=== PATIENT | male | born 1945 | race Caucasian/White ===

== ENCOUNTER 2020-02-19 17:17 | Emergency (ER) | payer MEDICARE, BC ==
[2020-02-19] MEDS ORDERED: Sodium Chloride 0.9% 10 ML Syringe FLUSH PRN (17:27)
[2020-02-19] MEDS ORDERED: Sodium Chloride 0.9% 2.5 ML Syringe FLUSH PRN (17:27)
--- NOTE | 2020-02-19 17:43 | EDM.PDOC ---
<Harvey Brennan - Last Filed: 02/19/20 19:14> ED HPI GENERAL MEDICAL PROBLEM - General Chief Complaint: Cardiovascular Problem Stated Complaint: DIZZY NOT FEELING WELL Time Seen by Provider: 02/19/20 17:25 - Related Data Allergies Allergy/AdvReac Type Severity Reaction Status Date / Time No Known Allergies Allergy Verified 02/19/20 17:29 Home Meds: Home Meds Acetaminophen [Tylenol] 500 mg PO Q4H PRN 02/19/20 [History] Aspirin 81 mg PO DAILY 02/19/20 [History] Calcium Carbonate [Calcium] 1 tab PO BID 02/19/20 [History] Cholecalciferol (Vitamin D3) [Vitamin D] 1 tab PO DAILY 02/19/20 [History] Clopidogrel Bisulfate [Plavix] 1 tab PO DAILY 02/19/20 [History] Diltiazem [Cardizem] 1 tab PO DAILY 02/19/20 [History] Docusate Calcium 1 tab PO DAILY PRN 02/19/20 [History] Folic Acid 2 tab PO DAILY 02/19/20 [History] Lutein 20 mg PO DAILY 02/19/20 [History] Methotrexate 8 tab PO WEEKLY 02/19/20 [History] [place]-3/DHA/Epa/Fish Oil [[place] 3 500 Softgel] 1,000 mg PO DAILY 02/19/20 [History] Pantoprazole [ProTONIX] 40 mg PO DAILY 02/19/20 [History] Rosuvastatin [Crestor] 10 mg PO DAILY 02/19/20 [History] Vit A/Vit C/Vit E/Zinc/Copper [Preservision] 2 tab PO DAILY 02/19/20 [History] Vitamin E 1 tab PO DAILY 02/19/20 [History] predniSONE [Prednisone] 2.5 mg PO BEDTIME 02/19/20 [History] predniSONE [Prednisone] 5 mg PO DAILY 02/19/20 [History] ED ROS GENERAL - Review of Systems Review Of Systems: Comprehensive ROS is negative, except as noted in HPI. ED EXAM, GENERAL - Physical Exam Exam: See Below General Appearance: Alert, WD/WN, No Apparent Distress Head: Atraumatic, Normocephalic Respiratory/Chest: No Respiratory Distress Extremities: Normal Inspection Neurological: Alert, Normal Gait Psychiatric: Normal Affect, Normal Mood Skin Exam: Warm, Dry, Intact Course - Re-Assessments/Exams Free Text/Narrative Re-Assessment/Exam: 02/19/20 19:07 Patient care transitioned to f/u IVFB and reassessment. Departure - Departure Time of Disposition: 19:14 Disposition: Home, Self-Care 01 Clinical Impression: Orthostatic hypotension Instructions: Tilt Table Test, Orthostatic Hypotension Referrals: Gucci Paredes MD [Primary Care Provider] - Forms: ED Department Discharge Additional Instructions: The following information is given to patients seen in the emergency department who are being discharged to home. This information is to outline your options for follow-up care. We provide all patients seen in our emergency department with a follow-up referral. The need for follow-up, as well as the timing and circumstances, are variable depending upon the specifics of your emergency department visit. If you don't have a primary care physician on staff, we will provide you with a referral. We always advise you to contact your personal physician following an emergency department visit to inform them of the circumstance of the visit and for follow-up with them and/or the need for any referrals to a consulting specialist. The emergency department will also refer you to a specialist when appropriate. This referral assures that you have the opportunity for follow-up care with a specialist. All of these measure are taken in an effort to provide you with optimal care, which includes your follow-up. Under all circumstances we always encourage you to contact your private physician who remains a resource for coordinating your care. When calling for follow-up care, please make the office aware that this follow-up is from your recent emergency room visit. If for any reason you are refused follow-up, please contact the [facility] Emergency Department at and asked to speak to the emergency department charge nurse. Follow up with a primary care physician in 1-3 days; if you do not already have one, you can utilize either of the below clinics and let them know you were seen in the ED and require porras follow-up: [facility] [address] [place] [address] My [facility] [address] [place] [address] <Wilfred Sharp - Last Filed: 02/19/20 19:33> ED HPI GENERAL MEDICAL PROBLEM - General Source of Information: Reports: Patient, Old Records History Limitations: Reports: No Limitations - History of Present Illness INITIAL COMMENTS - FREE TEXT/NARRATIVE: 74/M w/PMH CAD s/p CABG x5 s/p stenting x5, HTN presenting with lightheadedness. Had two episodes of intermittent lightheadedness at home a/w position changes from sitting to standing. [place] lightheaded and had to sit/lie down, immediately felt better afterwards. A/w feeling of weakness in b/l lower extremities that also rapidly resolved after lying down. No longer feeling lightheaded. 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 Denies CP, SOB, vision changes, dysarthria, dysphagia, headache or neck pain, facial or extremity numbness or weakness, h/o prior CVA/TIA. No recent illness, fever, NVD, rectal bleeding, h/o anemia. At present the patient is asymptomatic and feels back to normal. ROS: A 10-point review of systems was negative, except as noted in the HPI (or in the ROS section of this note). Past medical history: Reviewed, no additional pertinent history. Surgical history: Reviewed in system, no additional pertinent history. Social history: Reviewed in system, no additional pertinent history. Family history: Reviewed in system, no additional pertinent history. PHYSICAL EXAM Vital signs reviewed. Nursing notes reviewed. Constitutional: Awake, alert, non-distressed. Head: Normocephalic, atraumatic. Eyes: EOMI, conjunctiva normal, no discharge, no scleral icterus. Ears, Nose, Throat: External ears and nose normal, moist oral mucosa. Cardiovascular: 2+ radial pulse, capillary refill less than 2 seconds. 2+ systolic murmur. Pulmonary: normal work of breathing, no accessory muscle use. Abdomen/GI: Soft, nontender, nondistended, no guarding or rigidity, no masses. Musculoskeletal: No deformities. Integumentary: Appropriate color for ethnicity, warm, dry, no pallor or jaundice, no rash. Neurologic: Awake, alert, and oriented x3. Cranial nerves II through XII intact. No facial droop or dysarthria. Supple neck with normal range of motion. No pronator drift. Normal [id number] and cnog-lh-mctk. No dysdiadochokinesia. 5/5 strength in all extremities. Sensation intact to light touch x4. Normal gait. Able to sit, stand, and ambulate without assistance. Psychiatric: Appropriate mood and affect, normal thought process. Past Medical History Cardiovascular History: Reports: Bypass, CAD, High Cholesterol, Hypertension Respiratory History: Reports: COPD Musculoskeletal History: Reports: Arthritis Oncologic (Cancer) History: Reports: Other (See Below) Other Oncologic History: Lip - Infectious Disease History Infectious Disease History: Reports: Measles, Mumps - Past Surgical History Cardiovascular Surgical History: Reports: Carotid Stents, Coronary Artery Bypass Musculoskeletal Surgical History: Reports: Knee Replacement Other Musculoskeletal Surgeries/Procedures:: Left Knee replaced Social & Family History - Family History Family Medical History: Noncontributory - Tobacco Use Smoking Status *Q: Never Smoker - Recreational Drug Use Recreational Drug Use: No Course - Vital Signs Text/Narrative:: CBC with mild normcytic anemia. Electrolytes reassuring. Negative troponin. No gross neurologic deficits. Low suspicion for CVA/TIA at this point given HPI, description of symptoms with position change, and patient being back to baseline. Seems consistent with orthostatic near-syncope. Ordered 1L LR bolus, will plan to ambulante afterwards to ensure clinical improvement. Signed out to Dr. Brennan at shift change pending completion of fluids and reassessment. Last Recorded V/S: Last Vital Signs Temp 35.9 C L 02/19/20 17:26 Pulse 75 02/19/20 18:21 Resp 12 02/19/20 18:21 BP 139/69 02/19/20 18:21 Pulse Ox 95 02/19/20 18:21 - Orders/Labs/Meds Orders: Active Orders 24 hr Category Date Time Status Cardiac Monitoring [RC] . DIRECTED Care 02/19/20 17:27 Active EKG Documentation Completion [RC] STAT Care 02/19/20 17:27 Active Pulse Oximetry [RC] ASDIRECTED Care 02/19/20 17:27 Active Sodium Chloride 0.9% [Saline Flush] Med 02/19/20 17:27 Active 10 ml FLUSH ASDIRECTED PRN Sodium Chloride 0.9% [Saline Flush] Med 02/19/20 17:27 Active 2.5 ml FLUSH ASDIRECTED PRN Saline Lock Insert [OM.PC] Stat Oth 02/19/20 17:27 Ordered Medication Orders Sodium Chloride (Saline Flush) 10 ml FLUSH ASDIRECTED PRN PRN Reason: Keep Vein Open Last Admin: 02/19/20 17:45 Dose: 10 ml Documented by: DENNY Sodium Chloride (Saline Flush) 2.5 ml FLUSH ASDIRECTED PRN PRN Reason: Keep Vein Open Last Admin: 02/19/20 17:45 Dose: 2.5 ml Documented by: DENNY Labs: Laboratory Tests 02/19/20 02/19/20 Range/Units 17:39 17:39 WBC 8.92 (4.0-11.0) K/uL RBC 3.93 L (4.50-5.90) M/uL Hgb 12.6 L (13.0-17.0) g/dL Hct 38.4 (38.0-50.0) % MCV 97.7 (80.0-98.0) fL MCH 32.1 H (27.0-32.0) pg MCHC 32.8 (31.0-37.0) g/dL RDW Std Deviation 55.2 (28.0-62.0) fl RDW Coeff of Tiny 15 (11.0-15.0) % Plt Count 140 L (150-400) K/uL MPV 10.50 (7.40-12.00) fL Neut % (Auto) 61.7 (48.0-80.0) % Lymph % (Auto) 30.5 (16.0-40.0) % [place] % (Auto) 6.6 (0.0-15.0) % Eos % (Auto) 1.0 (0.0-7.0) % Baso % (Auto) 0.2 (0.0-1.5) % Neut # (Auto) 5.5 (1.4-5.7) K/uL Lymph # (Auto) 2.7 H (0.6-2.4) K/uL [place] # (Auto) 0.6 (0.0-0.8) K/uL Eos # (Auto) 0.1 (0.0-0.7) K/uL Baso # (Auto) 0.0 (0.0-0.1) K/uL Nucleated RBC % 0.0 /100WBC Nucleated RBCs # 0 K/uL Sodium 138 (136-148) mmol/L Potassium 3.5 (3.5-5.1) mmol/L Chloride 103 (98-107) mmol/L Carbon Dioxide 26.4 (21.0-32.0) mmol/L BUN 14 (7.0-18.0) mg/dL Creatinine 0.8 (0.8-1.3) mg/dL Est Cr Clr Drug Dosing 84.97 mL/min Estimated GFR (MDRD) > 60.0 ml/min Glucose 116 H (74-106) mg/dL Calcium 8.5 (8.5-10.1) mg/dL Total Bilirubin 0.5 (0.2-1.0) mg/dL AST 23 (15-37) IU/L ALT 39 (14-63) IU/L Alkaline Phosphatase 80 (46-116) U/L Troponin I < 0.050 (0.000-0.056) ng/mL Total Protein 7.0 (6.4-8.2) g/dL Albumin 3.5 (3.4-5.0) g/dL Globulin 3.5 (2.6-4.0) g/dL Albumin/Globulin Ratio 1.0 (0.9-1.6) Meds: Medications Generic Name Dose Route Start Last Admin Trade Name Freq PRN Reason Stop Dose Admin Sodium Chloride 10 ml 02/19/20 17:27 02/19/20 17:45 Saline Flush FLUSH 10 ml ASDIRECTED PRN Administration Keep Vein Open Sodium Chloride 2.5 ml 02/19/20 17:27 02/19/20 17:45 Saline Flush FLUSH 2.5 ml ASDIRECTED PRN Administration Keep Vein Open Discontinued Medications Generic Name Dose Route Start Last Admin Trade Name Freq PRN Reason Stop Dose Admin Lactated Ringer's 1,000 mls @ 999 mls/hr 02/19/20 18:10 02/19/20 18:19 Ringers, Lactated IV 09/15/20 19:10 999 mls/hr .BOLUS ONE Administration Sepsis Event Note (ED) - Evaluation Sepsis Screening Result: No Definite Risk - Focused Exam Vital Signs: Vital Signs Temp Pulse Resp BP Pulse Ox 02/19/20 18:21 75 12 139/69 95 02/19/20 17:26 35.9 C L 85 12 186/93 H 97 - My Orders Last 24 Hours: My Active Orders 02/19/20 17:27 Cardiac Monitoring [RC] . DIRECTED EKG Documentation Completion [RC] STAT Pulse Oximetry [RC] ASDIRECTED Sodium Chloride 0.9% [Saline Flush] 10 ml FLUSH ASDIRECTED PRN Sodium Chloride 0.9% [Saline Flush] 2.5 ml FLUSH ASDIRECTED PRN Saline Lock Insert [OM.PC] Stat - Assessment/Plan Last 24 Hours: My Active Orders 02/19/20 17:27 Cardiac Monitoring [RC] . DIRECTED EKG Documentation Completion [RC] STAT Pulse Oximetry [RC] ASDIRECTED Sodium Chloride 0.9% [Saline Flush] 10 ml FLUSH ASDIRECTED PRN Sodium Chloride 0.9% [Saline Flush] 2.5 ml FLUSH ASDIRECTED PRN Saline Lock Insert [OM.PC] Stat
[2020-02-19] MEDS ORDERED: Lactated Ringers 1,000 ML IV ONE (18:10)
[2020-02-19 18:17] LABS: BLOOD UREA NITROGEN,BUN 14 mg/dL (7.0-18.0); CARBON DIOXIDE,CO2 26.4 mmol/L (21.0-32.0); CHLORIDE,CL 103 mmol/L (98-107); GLUCOSE RANDOM 116 mg/dL (74-106); POTASSIUM,K 3.5 mmol/L (3.5-5.1); SODIUM,NA 138 mmol/L (136-148)
== END 2020-02-19 19:30 | disposition home or self-care (01) ==
LOC: MW.ED 17:17
DX: I95.1 Orthostatic hypotension (principal); I25.10 Atherosclerotic heart disease of native coronary artery without angina pectoris; I10 Essential (primary) hypertension; J44.9 Chronic obstructive pulmonary disease, unspecified; D64.9 Anemia, unspecified; M19.90 Unspecified osteoarthritis, unspecified site; E78.00 Pure hypercholesterolemia, unspecified; Z95.5 Presence of coronary angioplasty implant and graft; Z79.899 Other long term (current) drug therapy; Z79.82 Long term (current) use of aspirin; Z79.02 Long term (current) use of antithrombotics/antiplatelets; Z95.1 Presence of aortocoronary bypass graft
CPT/HCPCS: 36415; 80053; 84484; 85025; 93005; 96360; 99284; J7120

== ENCOUNTER 2020-11-18 01:03 | Emergency (ER) | payer MEDICARE, BC ==
--- NOTE | 2020-11-18 01:22 | EDM.PDOC ---
ED HPI GENERAL MEDICAL PROBLEM - General Chief Complaint: Genitourinary Problem Stated Complaint: TROUBLE URINATING Time Seen by Provider: 11/18/20 01:13 - History of Present Illness INITIAL COMMENTS - FREE TEXT/NARRATIVE: 75-year-old male with a history of multiple UTIs in the past presents with dysuria urinary frequency and a sensation that he cannot empty his bladder fully. Patient states that he has struggled with weak stream on and off for the last few months and is wondered about prostate problems. Today he has been unable to urinate except in very frequent very small spurts. He denies any sensation of suprapubic pressure pain or fullness however. No fevers no back or flank pain. Patient otherwise feels well. Patient last received antibiotics for urinary tract infection approximately 1 month ago. - Related Data Allergies Allergy/AdvReac Type Severity Reaction Status Date / Time No Known Allergies Allergy Verified 11/18/20 01:25 Home Meds: Home Meds Acetaminophen [Tylenol] 500 mg PO Q4H PRN 02/19/20 [History] Aspirin 81 mg PO DAILY 02/19/20 [History] Calcium Carbonate [Calcium] 1 tab PO BID 02/19/20 [History] Clopidogrel Bisulfate [Plavix] 75 mg PO DAILY 02/19/20 [History] Diltiazem [Cardizem] 120 mg PO DAILY 02/19/20 [History] Docusate Calcium 1 tab PO DAILY PRN 02/19/20 [History] Folic Acid 2 mg PO DAILY 02/19/20 [History] Lutein 20 mg PO DAILY 02/19/20 [History] Methotrexate 8 tab PO WEEKLY 02/19/20 [History] [place]-3/DHA/Epa/Fish Oil [[place] 3 500 Softgel] 1,000 mg PO DAILY 02/19/20 [History] Pantoprazole [ProTONIX] 40 mg PO DAILY 02/19/20 [History] Rosuvastatin [Crestor] 10 mg PO DAILY 02/19/20 [History] Vit A/Vit C/Vit E/Zinc/Copper [Preservision] 2 tab PO DAILY 02/19/20 [History] Vitamin E 1 tab PO DAILY 02/19/20 [History] Doxazosin [Doxazosin Mesylate] 4 mg PO DAILY 11/18/20 [History] InFLIXimab-DYYB [Inflectra] 100 mg IV ASDIRECTED 11/18/20 [History] Past Medical History Cardiovascular History: Reports: Bypass, CAD, High Cholesterol, Hypertension Respiratory History: Reports: COPD Musculoskeletal History: Reports: Arthritis Oncologic (Cancer) History: Reports: Other (See Below) Other Oncologic History: Lip - Infectious Disease History Infectious Disease History: Reports: Measles, Mumps - Past Surgical History Cardiovascular Surgical History: Reports: Carotid Stents, Coronary Artery Bypass Musculoskeletal Surgical History: Reports: Knee Replacement Other Musculoskeletal Surgeries/Procedures:: Left Knee replaced Social & Family History - Family History Family Medical History: No Pertinent Family History ED ROS GENERAL - Review of Systems Review Of Systems: See Below Free Text/Narrative/Comment: General: No fever. Eyes: Longstanding stable issues with macular degeneration. ENT: No sore throat. Neck: No neck stiffness. Respiratory: No shortness of breath. Cardiac: No chest pain. Gastrointestinal: No nausea, vomiting or abdominal pain. Urinary: Per HPI Musculoskeletal: No myalgias/arthralgias. Neurologic: No headache. ED EXAM, GENERAL - Physical Exam Exam: See Below Free Text/Narrative:: General Appearance: No acute distress, appears comfortable Skin: No rash HEENT: Normocephalic/atraumatic, sclera anicteric, mucous membranes moist Neck: Normal range of motion Chest and Lungs: Bilateral breath sounds, clear to auscultation Cardiovascular: Regular rate and rhythm, no murmur Abdomen: Soft, mild suprapubic tenderness no clearly palpable bladder mass Back: Normal Musculoskeletal: No edema or tenderness Neurologic: Awake, alert, no obvious deficits, moving all extremities Psychiatric: Appropriate, cooperative Course - Vital Signs Last Recorded V/S: Last Vital Signs Temp 98.6 F 11/18/20 01:11 Pulse 97 11/18/20 01:11 Resp 16 11/18/20 01:11 BP 162/82 H 11/18/20 01:11 Pulse Ox 97 11/18/20 01:11 - Orders/Labs/Meds Labs: Laboratory Tests 11/18/20 Range/Units 01:34 Urine Color YELLOW Urine Appearance SLT CLOUDY Urine pH 6.5 (5.0-8.0) Ur Specific [place] 1.015 (1.001-1.035) Urine Protein 30 H (NEGATIVE) mg/dL Urine Glucose (UA) NEGATIVE (NEGATIVE) mg/dL Urine Ketones NEGATIVE (NEGATIVE) mg/dL Urine Occult Blood MODERATE H (NEGATIVE) Urine Nitrite NEGATIVE (NEGATIVE) Urine Bilirubin NEGATIVE (NEGATIVE) Urine Urobilinogen 0.2 (<2.0) EU/dL Ur Leukocyte Esterase NEGATIVE (NEGATIVE) Urine RBC 35-40 (0-2/HPF) Urine WBC 0-2 (0-5/HPF) Ur Epithelial Cells RARE (NONE-FEW) Urine Bacteria FEW (NEGATIVE) Urine Mucus LIGHT (NONE-MOD) Departure - Departure Time of Disposition: 02:17 Disposition: Home, Self-Care 01 Condition: Good Clinical Impression: Acute urinary retention - Discharge Information *PRESCRIPTION DRUG MONITORING PROGRAM REVIEWED*: Not Applicable *COPY OF PRESCRIPTION DRUG MONITORING REPORT IN PATIENT MARCELO: Not Applicable Instructions: Indwelling Urinary Catheter Care, Adult, Acute Urinary Retention, Male Referrals: Gucci Paredes MD [Primary Care Provider] - 3 Days Mel Gutierrez MD [Physician] - 1 Week Forms: ED Department Discharge Additional Instructions: Your urine sample tonight did not show any evidence of a urinary tract infection. Please follow-up with your primary care doctor as well as the urologist Dr. Gutierrez. The following information is given to patients seen in the emergency department who are being discharged to home. This information is to outline your options for follow-up care. We provide all patients seen in our emergency department with a follow-up referral. The need for follow-up, as well as the timing and circumstances, are variable depending upon the specifics of your emergency department visit. If you don't have a primary care physician on staff, we will provide you with a referral. We always advise you to contact your personal physician following an emergency department visit to inform them of the circumstance of the visit and for follow-up with them and/or the need for any referrals to a consulting specialist. The emergency department will also refer you to a specialist when appropriate. This referral assures that you have the opportunity for follow-up care with a specialist. All of these measure are taken in an effort to provide you with optimal care, which includes your follow-up. Under all circumstances we always encourage you to contact your private physician who remains a resource for coordinating your care. When calling for follow-up care, please make the office aware that this follow-up is from your recent emergency room visit. If for any reason you are refused follow-up, please contact the [facility] Emergency Department at and asked to speak to the emergency department charge nurse. Sepsis Event Note (ED) - Focused Exam Vital Signs: Vital Signs Temp Pulse Resp BP Pulse Ox 11/18/20 01:11 98.6 F 97 16 162/82 H 97 - Assessment/Plan Assessment:: 75-year-old male presenting with signs and symptoms most consistent with acute urinary retention versus UTI or potentially both. We will do a bladder scan to assess for bladder volume. If he is in acute retention and Wagoner will be placed. Urinalysis is pending as well. Patient has no fever his vital signs are good I see no signs of sepsis or indications for blood work at this time.
== END 2020-11-18 02:31 | disposition home or self-care (01) ==
LOC: MW.ED 01:03
DX: R33.9 Retention of urine, unspecified (principal); I25.10 Atherosclerotic heart disease of native coronary artery without angina pectoris; E78.00 Pure hypercholesterolemia, unspecified; I10 Essential (primary) hypertension; J44.9 Chronic obstructive pulmonary disease, unspecified; Z95.1 Presence of aortocoronary bypass graft; Z79.899 Other long term (current) drug therapy; Z79.82 Long term (current) use of aspirin; Z79.02 Long term (current) use of antithrombotics/antiplatelets
CPT/HCPCS: 51702; 81001; 99283; 99284-25

== ENCOUNTER 2020-11-18 06:15 | Emergency (ER) | payer MEDICARE, BC ==
--- NOTE | 2020-11-18 06:33 | PCM.SN.2 ---
- Free Text/Narrative Note: [place] [address] hematuria with a few small clots that clogged the catheter. He had no other complaints. The catheter was irrigated by nursing with 300 of normal saline this led to a few small clots and the Wagoner catheter is now again draining well. Patient brought in the other medication which is doxazosin. This does interact with the Flomax and so we will not start the patient on Flomax. Patient will follow up with his primary care provider and urology as discussed during his prior visit.
== END 2020-11-18 06:42 | disposition home or self-care (01) ==
LOC: MW.ED 06:15
DX: Z53.21 Procedure and treatment not carried out due to patient leaving prior to being seen by health care provider (principal)
CPT/HCPCS: 99281

== ENCOUNTER 2020-11-18 14:46 | Observation (INO) | payer MEDICARE, BC ==
[2020-11-18] MEDS ORDERED: Sodium Chloride 0.9% 2.5 ML Syringe FLUSH PRN ×2 (16:44→21:07)
[2020-11-18] MEDS ORDERED: Sodium Chloride 0.9% 10 ML Syringe FLUSH PRN ×2 (16:44→21:07)
[2020-11-18 17:46] LABS: BLOOD UREA NITROGEN,BUN 12 mg/dL (7.0-18.0); CARBON DIOXIDE,CO2 27.3 mmol/L (21.0-32.0); CHLORIDE,CL 105 mmol/L (98-107); GLUCOSE RANDOM 103 mg/dL (74-106); POTASSIUM,K 3.5 mmol/L (3.5-5.1); SODIUM,NA 139 mmol/L (136-148)
[2020-11-18] MEDS ORDERED: Sodium Chloride 0.9% 1,000 ML IV ONE (18:47)
[2020-11-18] MEDS ORDERED: Iopamidol 755 MG/ML 500 ML Multipack Bottle IVPUSH STA (20:08)
--- NOTE | 2020-11-18 20:31 | CT ---
INDICATION: Hematuria COMPARISON: None available TECHNIQUE: CT examination of the abdomen and pelvis was performed with the uneventful intravenous administration of 100 cc of Isovue 370 while 2.5 mm thick axial sections were obtained from the lung bases through the pubic symphysis. Oral contrast was not administered. Please note that all CT scans at this facility use dose modulation, iterative reconstruction, and/or weight-based dosing when appropriate to reduce radiation dose to as low as reasonably achievable. FINDINGS: There is prominent right hydronephrosis and prominent right hydroureter extending to the UVJ, where there is a heterogeneous, lobulated rounded mass that fills the majority of the urinary bladder. This could be blood clot, or could be a soft tissue mass. It measures 7.1 x 7.1 x 6.3 centimeters. A Wagoner catheter is positioned in the posterior left side of the mass. There is a simple cyst measuring 6.1 x 5.2 centimeters in diameter arising from the anterior upper pole of the right kidney. There is no sign of any right renal or ureteral calculi. The left kidney has a few tiny cysts in the lower pole cortex and a tiny cyst in superior interpolar region. The kidney is otherwise normal in appearance, with no sign of calculus or obstruction. In the abdomen, the liver has an 8 millimeter low-density region in the central superior medial segment of the left lobe, segment 4A, probably a cyst. This is of no clinical concern. The rest of the liver is normal in appearance. The spleen, pancreas, and adrenals are normal in appearance. The gallbladder is normal in appearance. The abdominal aorta is normal in caliber with no sign of dilatation. There is no sign of retroperitoneal mass or adenopathy. The stomach, loops of small bowel, and colon in the abdomen are normal in appearance. The cecum is located in the right upper quadrant. The retrocecal appendix extends superiorly to reach the inferior margin of the right lobe of the liver. The appendix is normal in appearance with no sign of any inflammatory process. The loops of small bowel and colon in the pelvis are normal in appearance. The prostate is moderately enlarged and is otherwise normal in appearance. The urinary bladder is normal in appearance. There is no sign of pelvic or inguinal mass or adenopathy. There is no sign of free air or free fluid in the abdomen or pelvis. The lung bases are clear. There is mild scoliosis of the inferior lumbar spine convex towards the left. There is and severe L5-S1 and moderate L4-5 disc degenerative disease. IMPRESSION: Severe right hydronephrosis and right hydroureter extending to the UVJ where there is a large rounded soft tissue structure largely filling the urinary bladder measuring 7.1 x 7.1 x 6.3 centimeters, bladder malignancy versus blood clot. The Wagoner catheter is positioned within this structure. CT of the abdomen shows no sign of any solid mass or calculus in either kidney. Moderate sized cyst arising from the upper pole of the right kidney. CT of the pelvis shows no additional abnormality. Please note that all CT scans at this facility use dose modulation, iterative reconstruction, and/or weight-based dosing when appropriate to reduce radiation dose to as low as reasonably achievable. Dictated by Nadir Campos MD @ 11/18/2020 8:29:[address] Nadir Campos @ Nov 18 2020 8:29PM
[2020-11-18] MEDS ORDERED: Sodium Chloride 0.9% 10 ML SDV IV PRN (21:07)
[2020-11-18] MEDS ORDERED: Docusate Sodium 100 MG Cap PO PRN (21:10)
[2020-11-18] MEDS ORDERED: Ondansetron 4 MG/2 ML SDV IVPUSH ONE (21:13)
[2020-11-18] MEDS ORDERED: Midazolam 1 MG/ML 2 ML SDV IVPUSH ONE (21:13)
[2020-11-18] MEDS ORDERED: Lactated Ringers 1,000 ML IV SCH (21:15)
[2020-11-18] MEDS ORDERED: Midazolam 1 MG/ML 2 ML SDV ONE (21:15)
[2020-11-18] MEDS ORDERED: Ondansetron 4 MG/2 ML SDV ONE (21:15)
[2020-11-18] MEDS: ceFAZolin 1 GM in Premix Bag 1 BAG IV SCH (21:39)
--- NOTE | 2020-11-18 22:07 | EDM.PDOC ---
ED HPI GENERAL MEDICAL PROBLEM - General Chief Complaint: Genitourinary Problem Stated Complaint: URINARY RETENTION Time Seen by Provider: 11/18/20 15:00 Source of Information: Reports: Patient History Limitations: Reports: No Limitations - History of Present Illness INITIAL COMMENTS - FREE TEXT/NARRATIVE: HISTORY AND PHYSICAL: History of present illness: Patient is a 75-year-old male, who presents emergency room today with an indwelling catheter already in place, who presents emergency room today secondary to blood in his urine causing clotting and blocking off the Sandoval c atheter tubing. Patient states that he was initially seen in the ER last night and had a Sandoval catheter placed for urinary retention. Patient states that the catheter was left in place and instructed to follow-up with urology. Patient states that since then, he has been having bright red blood in his urine which has clotted off his catheter tubing. Patient states that he called the urology clinic earlier today to try to see Dr. Mckoy today but was told that he is not taking patients due to skilled nursing. Patient states that he was not able to get the drain to on clot so came to the emergency room for further evaluation. Patient denies fever, chills, chest pain, shortness of breath, or cough. Denies headache, neck stiff ness, change in vision, syncope, or near syncope. Denies nausea, vomiting, abdominal pain, diarrhea, constipation. Has not noted any blood stool. Patient has been eating and drinking appropriately. Review of systems: As per history of present illness and below otherwise all systems reviewed and negative. Past medical history: As per history of present illness and as reviewed below otherwise noncontributory. Surgical history: As per history of present illness and as reviewed below otherwise noncontributory. Social history: See social history for further information Family history: As per history of present illness and as reviewed below otherwise non contributory. Physical exam: General: Patient is alert, oriented, and in no acute distress. Patient laying comfortably on exam table. Vitals stable and reviewed by me. HEENT: Atraumatic, normocephalic, pupils equal and reactive bilaterally, negative for conjunctival pallor or scleral icterus, mucous membranes moist, TMs normal bilaterally, throat clear, neck supple, nontender, trachea midline. No drooling or trismus noted. No meningeal signs. No hot potato voice noted. Lungs: Clear to auscultation, breath sounds equal bilaterally, chest nontender. Heart: S1S2, regular rate and rhythm without overt murmur Abdomen: Soft, nondistended, nontender. Negative for masses or hepatosplenomegaly. Negative for costovertebral tenderness. Pelvis: Stable nontender. Genitourinary: Deferred. Rectal: Overhead Garage Door Hanger at bedside, HALEY Martínez. There is gross hematuria noted in the catheter tubing with blood clotting tube. Blood noted around urethral meatus. No scrotal / testicular tenderness. Skin: Intact, warm, dry. No lesions or rashes noted. Extremities: Atraumatic, negative for cords or calf pain. Neurovascular unremarkable. Neuro: Awake, alert, oriented. Cranial nerves II through XII unremarkable. Cerebellum unremarkable. Motor and sensory unremarkable throughout. Exam nonfocal. Notes: Patient is a 75-year-old male who presents emergency room today secondary to blood clotting off his Sandoval catheter after having a Sandoval catheter placed last night secondary to acute urinary retention. Upon arrival to the ED, patient is noted to have a large amount of gross blood in the Sandoval catheter and tubing with urine not draining appropriately due to clotting. Consent was obtained to irrigate bladder to break up clotting by patient. Betadine used to properly disinfect area. A 6 hole Sandoval catheter was inserted in a sterile fashion and irrigated to break up clotting with 3,000cc of fluid used until all clotting was irrigated from the bladder. A 3 way sandoval was then inserted in a sterile fashion with continuous bladder irrigation initiated. Patient tolerated procedure well. CBC shows a white blood cell count of 3.03, hematocrit is low at 28.9 with a hemoglobin of 9.7. Repeat H&H shows a hemoglobin of 10 with hematocrit of 29.8. CMP mild derangements are unremarkable. Urinalysis performed from last night in the emergency room shows no acute infection but does have large amount of blood in the urine. Abdominal pelvic CT with contrast shows severe right hydronephrosis and right hydroureter extending to the UVJ where there is a large rounded soft tissue structure largely filling the urinary bladder. Bladder malignancy versus blood clot. The Sandoval catheter is positioned within the structure. CT of the abdomen and pelvis shows no sign of any solid mass or calculus in either kidney. There is size cyst arising from the upper pole the right kidney. CT of the pelvis shows no additional abnormality. I did call and speak to the urologist on-call, Dr. Gutierrez, and thoroughly discussed patient's case. He has come in to personally see and evaluate the patient. See his official dictation for specific treatment and disposition for patient. Will admit to observation to Dr. Gutierrez, urology. Voices understanding and is agreeable to plan of care. Denies any further questions or concerns at this time. Diagnostics: CBC, CMP, (UA performed on prior ER visit from last night and shows no acute infection), Abd/Pelvic ct w cont, COVID19, repeat H&H, type and screen Therapeutics: CBI with 3 way sandoval Impression: Gross hematuria Plan: Admit to observation to Dr. Mckoy, urology Definitive disposition and diagnosis as appropriate pending reevaluation and review of above. lower abdominal Pain Score (Numeric/FACES): 4 - Related Data Allergies Allergy/AdvReac Type Severity Reaction Status Date / Time No Known Allergies Allergy Verified 11/18/20 15:08 Home Meds: Home Meds Acetaminophen [Tylenol] 500 mg PO Q4H PRN 02/19/20 [History] Aspirin 81 mg PO DAILY 02/19/20 [History] Calcium Carbonate [Calcium] 1 tab PO BID 02/19/20 [History] Clopidogrel Bisulfate [Plavix] 75 mg PO DAILY 02/19/20 [History] Diltiazem [Cardizem] 120 mg PO DAILY 02/19/20 [History] Docusate Calcium 1 tab PO DAILY PRN 02/19/20 [History] Folic Acid 2 mg PO DAILY 02/19/20 [History] Lutein 20 mg PO DAILY 02/19/20 [History] Methotrexate 8 tab PO WEEKLY 02/19/20 [History] Quentin-3/DHA/Epa/Fish Oil [Quentin 3 500 Softgel] 1,000 mg PO DAILY 02/19/20 [History] Pantoprazole [ProTONIX] 40 mg PO DAILY 02/19/20 [History] Rosuvastatin [Crestor] 10 mg PO DAILY 02/19/20 [History] Vit A/Vit C/Vit E/Zinc/Copper [Preservision] 2 tab PO DAILY 02/19/20 [History] Vitamin E 1 tab PO DAILY 02/19/20 [History] Doxazosin [Doxazosin Mesylate] 4 mg PO DAILY 11/18/20 [History] InFLIXimab-DYYB [Inflectra] 100 mg IV ASDIRECTED 11/18/20 [History] Methotrexate 11/18/20 [History] Past Medical History HEENT History: Reports: Hard of Hearing, Impaired Vision Cardiovascular History: Reports: Bypass, CAD, High Cholesterol, Hypertension Respiratory History: Reports: COPD Gastrointestinal History: Reports: None Genitourinary History: Reports: Prostate Disorder, Retention, Urinary, UTI, Recurrent Other Genitourinary History: chronic sandoval Musculoskeletal History: Reports: Arthritis Neurological History: Reports: None Psychiatric History: Reports: None Endocrine/Metabolic History: Reports: None Hematologic History: Reports: None Immunologic History: Reports: None Oncologic (Cancer) History: Reports: Other (See Below) Other Oncologic History: Lip Dermatologic History: Reports: None - Infectious Disease History Infectious Disease History: Reports: Measles, Mumps - Past Surgical History Head Surgeries/Procedures: Reports: None Cardiovascular Surgical History: Reports: Carotid Stents, Coronary Artery Bypass Male Surgical History: Reports: None Musculoskeletal Surgical History: Reports: Knee Replacement Other Musculoskeletal Surgeries/Procedures:: Left Knee replaced Social & Family History - Family History Family Medical History: No Pertinent Family History - Tobacco Use Tobacco Use Status *Q: Former Tobacco User Used Tobacco, but Quit: Yes Month/Year Tobacco Last Used: 26 years - Caffeine Use Caffeine Use: Reports: None - Recreational Drug Use Recreational Drug Use: No ED ROS GENERAL - Review of Systems Review Of Systems: Comprehensive ROS is negative, except as noted in HPI. ED EXAM, GENERAL - Physical Exam Exam: See Below (see dictation) Course - Vital Signs Last Recorded V/S: Last Vital Signs Temp 97.4 F 11/18/20 15:08 Pulse 90 11/18/20 21:42 Resp 12 11/18/20 21:42 BP 112/64 11/18/20 21:42 Pulse Ox 97 11/18/20 21:42 - Orders/Labs/Meds Orders: Active Orders 24 hr Category Date Time Status Notify Provider Consults [RC] ASDIRECTED Care 11/18/20 18:47 Active Consult to Physician [CONS] Stat Cons 11/18/20 18:47 Active UA RFX CHERRY AND CULT IF INDIC [URIN] Stat Lab 11/18/20 18:40 Ordered Sodium Chloride 0.9% [Saline Flush] Med 11/18/20 16:44 Active 10 ml FLUSH ASDIRECTED PRN Sodium Chloride 0.9% [Saline Flush] Med 11/18/20 16:44 Active 2.5 ml FLUSH ASDIRECTED PRN Saline Lock Insert [OM.PC] Stat Oth 11/18/20 16:44 Ordered Medication Orders Lactated Ringer's (Ringers, Lactated) 1,000 mls @ 100 mls/hr IV ASDIRECTED MALI Last Admin: 11/18/20 21:35 Dose: 100 mls/hr Documented by: CARERIC Cefazolin Sodium/Dextrose 1 gm (/ Premix) 50 mls @ 100 mls/hr IV Q8H MALI Last Admin: 11/18/20 21:39 Dose: 100 mls/hr Documented by: CARERIC Non-Formulary Medication (Diltiazem [Cardizem]) 120 mg PO DAILY MALI Non-Formulary Medication (Docusate Calcium [Docusate Calcium]) 1 tab PO DAILY PRN PRN Reason: Constipation Pantoprazole Sodium (Pantoprazole 40 Mg Tab.Cr) 40 mg PO DAILY MALI Sodium Chloride (Sodium Chloride 0.9% 10 Ml Syringe) 10 ml FLUSH ASDIRECTED PRN PRN Reason: Keep Vein Open Last Admin: 11/18/20 18:12 Dose: 10 ml Documented by: SLATBRI Sodium Chloride (Sodium Chloride 0.9% 2.5 Ml Syringe) 2.5 ml FLUSH ASDIRECTED PRN PRN Reason: Keep Vein Open Last Admin: 11/18/20 18:12 Dose: 2.5 ml Documented by: SLATBRI Sodium Chloride (Sodium Chloride 0.9% 10 Ml Sdv) 10 ml IV ASDIRECTED PRN PRN Reason: IV Use Labs: Laboratory Tests 11/18/20 11/18/20 11/18/20 Range/Units 17:05 17:05 18:58 WBC 7.90 (4.0-11.0) K/uL RBC 3.03 L (4.50-5.90) M/uL Hgb 9.7 L (13.0-17.0) g/dL Hct 28.9 L (38.0-50.0) % MCV 95.4 (80.0-98.0) fL MCH 32.0 (27.0-32.0) pg MCHC 33.6 (31.0-37.0) g/dL RDW Std Deviation 54.0 (28.0-62.0) fl RDW Coeff of Tiny 16 H (11.0-15.0) % Plt Count 140 L (150-400) K/uL MPV 10.70 (7.40-12.00) fL Neut % (Auto) 65.6 (48.0-80.0) % Lymph % (Auto) 27.1 (16.0-40.0) % Brooks % (Auto) 5.7 (0.0-15.0) % Eos % (Auto) 1.3 (0.0-7.0) % Baso % (Auto) 0.3 (0.0-1.5) % Neut # (Auto) 5.2 (1.4-5.7) K/uL Lymph # (Auto) 2.1 (0.6-2.4) K/uL Brooks # (Auto) 0.5 (0.0-0.8) K/uL Eos # (Auto) 0.1 (0.0-0.7) K/uL Baso # (Auto) 0.0 (0.0-0.1) K/uL Nucleated RBC % 0.0 /100WBC Nucleated RBCs # 0 K/uL Sodium 139 (136-148) mmol/L Potassium 3.5 (3.5-5.1) mmol/L Chloride 105 (98-107) mmol/L Carbon Dioxide 27.3 (21.0-32.0) mmol/L BUN 12 (7.0-18.0) mg/dL Creatinine 0.7 L (0.8-1.3) mg/dL Est Cr Clr Drug Dosing 95.62 mL/min Estimated GFR (MDRD) > 60.0 ml/min Glucose 103 (74-106) mg/dL Calcium 8.7 (8.5-10.1) mg/dL Total Bilirubin 0.5 (0.2-1.0) mg/dL AST 18 (15-37) IU/L ALT 27 (14-63) IU/L Alkaline Phosphatase 79 (46-116) U/L Total Protein 6.3 L (6.4-8.2) g/dL Albumin 2.9 L (3.4-5.0) g/dL Globulin 3.4 (2.6-4.0) g/dL Albumin/Globulin Ratio 0.9 (0.9-1.6) SARS-CoV-2 RNA (MALINDA) NEGATIVE (NEGATIVE) Blood Type Antibody Screen 11/18/20 11/18/20 Range/Units 18:58 18:58 WBC (4.0-11.0) K/uL RBC (4.50-5.90) M/uL Hgb 10.0 L (13.0-17.0) g/dL Hct 29.8 L (38.0-50.0) % MCV (80.0-98.0) fL MCH (27.0-32.0) pg MCHC (31.0-37.0) g/dL RDW Std Deviation (28.0-62.0) fl RDW Coeff of Tiny (11.0-15.0) % Plt Count (150-400) K/uL MPV (7.40-12.00) fL Neut % (Auto) (48.0-80.0) % Lymph % (Auto) (16.0-40.0) % Brooks % (Auto) (0.0-15.0) % Eos % (Auto) (0.0-7.0) % Baso % (Auto) (0.0-1.5) % Neut # (Auto) (1.4-5.7) K/uL Lymph # (Auto) (0.6-2.4) K/uL Brooks # (Auto) (0.0-0.8) K/uL Eos # (Auto) (0.0-0.7) K/uL Baso # (Auto) (0.0-0.1) K/uL Nucleated RBC % /100WBC Nucleated RBCs # K/uL Sodium (136-148) mmol/L Potassium (3.5-5.1) mmol/L Chloride (98-107) mmol/L Carbon Dioxide (21.0-32.0) mmol/L BUN (7.0-18.0) mg/dL Creatinine (0.8-1.3) mg/dL Est Cr Clr Drug Dosing mL/min Estimated GFR (MDRD) ml/min Glucose (74-106) mg/dL Calcium (8.5-10.1) mg/dL Total Bilirubin (0.2-1.0) mg/dL AST (15-37) IU/L ALT (14-63) IU/L Alkaline Phosphatase (46-116) U/L Total Protein (6.4-8.2) g/dL Albumin (3.4-5.0) g/dL Globulin (2.6-4.0) g/dL Albumin/Globulin Ratio (0.9-1.6) SARS-CoV-2 RNA (MALINDA) (NEGATIVE) Blood Type A POSITIVE Antibody Screen NEGATIVE Meds: Medications Generic Name Dose Route Start Last Admin Trade Name Iamq PRN Reason Stop Dose Admin Lactated Ringer's 1,000 mls @ 100 mls/hr 11/18/20 21:15 11/18/20 21:35 Ringers, Lactated IV 100 mls/hr ASDIRECTED MALI Administration Cefazolin Sodium/Dextrose 1 gm 50 mls @ 100 mls/hr 11/18/20 21:15 11/18/20 21:39 / Premix IV 100 mls/hr Q8H MALI Administration Non-Formulary Medication 120 mg 11/19/20 09:00 Diltiazem [Cardizem] PO DAILY MALI Non-Formulary Medication 1 tab 11/18/20 21:10 Docusate Calcium [Docusate Calcium] PO DAILY PRN Constipation Pantoprazole Sodium 40 mg 11/19/20 09:00 Pantoprazole 40 Mg Tab.Cr PO DAILY MALI Sodium Chloride 10 ml 11/18/20 16:44 11/18/20 18:12 Sodium Chloride 0.9% 10 Ml Syringe FLUSH 10 ml ASDIRECTED PRN Administration Keep Vein Open Sodium Chloride 2.5 ml 11/18/20 16:44 11/18/20 18:12 Sodium Chloride 0.9% 2.5 Ml Syringe FLUSH 2.5 ml ASDIRECTED PRN Administration Keep Vein Open Sodium Chloride 10 ml 11/18/20 21:07 Sodium Chloride 0.9% 10 Ml Sdv IV ASDIRECTED PRN IV Use Discontinued Medications Generic Name Dose Route Start Last Admin Trade Name Iamq PRN Reason Stop Dose Admin Sodium Chloride 1,000 mls @ 999 mls/hr 11/18/20 18:47 11/18/20 21:26 Normal Saline IV 11/18/20 19:47 Not Given STAT ONE Iopamidol 100 ml 11/18/20 20:08 11/18/20 20:09 Iopamidol 755 Mg/Ml 500 Ml Multipack Bottle IVPUSH 11/18/20 20:09 100 ml ONETIME STA Administration Midazolam HCl 1 mg 11/18/20 21:13 11/18/20 21:34 Midazolam 1 Mg/Ml 2 Ml Sdv IVPUSH 11/18/20 21:14 1 mg ONETIME ONE Administration Midazolam HCl Confirm 11/18/20 21:15 11/18/20 21:34 Midazolam 1 Mg/Ml 2 Ml Sdv Administered 11/18/20 21:16 Not Given Dose 2 mg .ROUTE .STK-MED ONE Ondansetron HCl 4 mg 11/18/20 21:13 11/18/20 21:34 Ondansetron 4 Mg/2 Ml Sdv IVPUSH 11/18/20 21:14 4 mg ONETIME ONE Administration Ondansetron HCl Confirm 11/18/20 21:15 11/18/20 21:34 Ondansetron 4 Mg/2 Ml Sdv Administered 11/18/20 21:16 Not Given Dose 4 mg .ROUTE .STK-MED ONE Departure - Departure Time of Disposition: 22:09 Disposition: Refer to Observation Clinical Impression: Gross hematuria - Discharge Information Sepsis Event Note (ED) - Evaluation Sepsis Screening Result: No Definite Risk - Focused Exam Vital Signs: Vital Signs Temp Pulse Resp BP Pulse Ox 11/18/20 20:45 82 15 122/67 97 11/18/20 19:35 82 20 132/68 100 11/18/20 15:08 97.4 F 84 18 150/69 H 96 - My Orders Last 24 Hours: My Active Orders 11/18/20 16:44 Sodium Chloride 0.9% [Saline Flush] 10 ml FLUSH ASDIRECTED PRN Sodium Chloride 0.9% [Saline Flush] 2.5 ml FLUSH ASDIRECTED PRN Saline Lock Insert [OM.PC] Stat 11/18/20 18:40 UA RFX CHERRY AND CULT IF INDIC [URIN] Stat 11/18/20 18:47 Notify Provider Consults [RC] ASDIRECTED Consult to Physician [CONS] Stat - Assessment/Plan Last 24 Hours: My Active Orders 11/18/20 16:44 Sodium Chloride 0.9% [Saline Flush] 10 ml FLUSH ASDIRECTED PRN Sodium Chloride 0.9% [Saline Flush] 2.5 ml FLUSH ASDIRECTED PRN Saline Lock Insert [OM.PC] Stat 11/18/20 18:40 UA RFX CHERRY AND CULT IF INDIC [URIN] Stat 11/18/20 18:47 Notify Provider Consults [RC] ASDIRECTED Consult to Physician [CONS] Stat
--- NOTE | 2020-11-18 23:44 | PCM.CONS ---
H&P History of Present Illness - General Date of Service: 11/18/20 Admit Problem/Dx: Admission Diagnosis/Problem Admission Diagnosis/Problem Hematuria - History of Present Illness Initial Comments - Free Text/Narative: 75 yo male with pmh of CAD, HTN, COPD, psoriatic arthritis who presented to the ED yesterday with urinary obstruction. He was discharged home with a sandoval catheter, He presented tonight with complaints of blood in his urine and blood clot blocking his sandoval catheter. CT scan of abdomen shows right hydronephrosis and hydroureter with large round soft tissue structure filling the bladder pos sible baldder malignancy vs clot. Dr. Gutierrez was consulted and admitted the patient for CBI treatment. Patient has a past medical history of Coronary artery disease with 5 stents placed in the past with last one done four years ago. Patient denies and chest pain, shortness of breath, or fevers. lower abdominal Pain Score (Numeric/FACES): 4 - Related Data Allergies/Adverse Reactions: Allergies Allergy/AdvReac Type Severity Reaction Status Date / Time No Known Allergies Allergy Verified 11/18/20 23:21 Home Medications: Home Meds Acetaminophen [Tylenol] 500 mg PO Q4H PRN 02/19/20 [History] Aspirin 81 mg PO DAILY 02/19/20 [History] Calcium Carbonate [Calcium] 1 tab PO BID 02/19/20 [History] Clopidogrel Bisulfate [Plavix] 75 mg PO DAILY 02/19/20 [History] Diltiazem [Cardizem] 120 mg PO DAILY 02/19/20 [History] Docusate Calcium 1 tab PO DAILY PRN 02/19/20 [History] Folic Acid 2 mg PO DAILY 02/19/20 [History] Lutein 20 mg PO DAILY 02/19/20 [History] Methotrexate 8 tab PO WEEKLY 02/19/20 [History] [place]-3/DHA/Epa/Fish Oil [[place] 3 500 Softgel] 1,000 mg PO DAILY 02/19/20 [History] Pantoprazole [ProTONIX] 40 mg PO DAILY 02/19/20 [History] Rosuvastatin [Crestor] 10 mg PO DAILY 02/19/20 [History] Vit A/Vit C/Vit E/Zinc/Copper [Preservision] 2 tab PO DAILY 02/19/20 [History] Vitamin E 1 tab PO DAILY 02/19/20 [History] Doxazosin [Doxazosin Mesylate] 4 mg PO DAILY 11/18/20 [History] InFLIXimab-DYYB [Inflectra] 100 mg IV ASDIRECTED 11/18/20 [History] Methotrexate 11/18/20 [History] Past Medical History HEENT History: Reports: Hard of Hearing, Impaired Vision Cardiovascular History: Reports: Bypass, CAD, High Cholesterol, Hypertension Respiratory History: Reports: COPD Gastrointestinal History: Reports: None Genitourinary History: Reports: Prostate Disorder, Retention, Urinary, UTI, Recurrent Other Genitourinary History: chronic sandoval Musculoskeletal History: Reports: Arthritis Neurological History: Reports: None Psychiatric History: Reports: None Endocrine/Metabolic History: Reports: None Hematologic History: Reports: None Immunologic History: Reports: None Oncologic (Cancer) History: Reports: Other (See Below) Other Oncologic History: Lip Dermatologic History: Reports: None - Infectious Disease History Infectious Disease History: Reports: Measles, Mumps - Past Surgical History Head Surgeries/Procedures: Reports: None Cardiovascular Surgical History: Reports: Carotid Stents, Coronary Artery Bypass Male Surgical History: Reports: None Musculoskeletal Surgical History: Reports: Knee Replacement Other Musculoskeletal Surgeries/Procedures:: Left Knee replaced Social & Family History - Family History Family Medical History: No Pertinent Family History - Tobacco Use Tobacco Use Status *Q: Former Tobacco User Years of Tobacco use: 35 Used Tobacco, but Quit: Yes Month/Year Tobacco Last Used: 06/1994 - Caffeine Use Caffeine Use: Reports: Soda - Recreational Drug Use Recreational Drug Use: No H&P Review of Systems - Review of Systems: Review Of Systems: Comprehensive ROS is negative, except as noted in HPI. Exam - Exam Exam: See Below - Vital Signs Vital Signs: Last Vital Signs Temp 36.0 C L 11/18/20 22:40 Pulse 79 11/18/20 22:40 Resp 17 11/18/20 22:40 BP 104/53 L 11/18/20 22:40 Pulse Ox 100 11/18/20 22:40 Weight: 90.718 kg - Exam General: Alert, Oriented HEENT: Mucosa Moist & [place] Lungs: Clear to Auscultation, Normal Respiratory Effort Cardiovascular: Regular Rate, Regular Rhythm GI/Abdominal Exam: Normal Bowel Sounds, Soft, Non-Tender Extremities: Non-Tender, No Pedal Edema Skin: Warm, Dry, Intact - Patient Data Lab Results Last 24 hrs: Laboratory Results - last 24 hr 11/18/20 11/18/20 11/18/20 Range/Units 17:05 17:05 18:58 WBC 7.90 (4.0-11.0) K/uL RBC 3.03 L (4.50-5.90) M/uL Hgb 9.7 L (13.0-17.0) g/dL Hct 28.9 L (38.0-50.0) % MCV 95.4 (80.0-98.0) fL MCH 32.0 (27.0-32.0) pg MCHC 33.6 (31.0-37.0) g/dL RDW Std Deviation 54.0 (28.0-62.0) fl RDW Coeff of Tiny 16 H (11.0-15.0) % Plt Count 140 L (150-400) K/uL MPV 10.70 (7.40-12.00) fL Neut % (Auto) 65.6 (48.0-80.0) % Lymph % (Auto) 27.1 (16.0-40.0) % Snyder % (Auto) 5.7 (0.0-15.0) % Eos % (Auto) 1.3 (0.0-7.0) % Baso % (Auto) 0.3 (0.0-1.5) % Neut # (Auto) 5.2 (1.4-5.7) K/uL Lymph # (Auto) 2.1 (0.6-2.4) K/uL Snyder # (Auto) 0.5 (0.0-0.8) K/uL Eos # (Auto) 0.1 (0.0-0.7) K/uL Baso # (Auto) 0.0 (0.0-0.1) K/uL Nucleated RBC % 0.0 /100WBC Nucleated RBCs # 0 K/uL Sodium 139 (136-148) mmol/L Potassium 3.5 (3.5-5.1) mmol/L Chloride 105 (98-107) mmol/L Carbon Dioxide 27.3 (21.0-32.0) mmol/L BUN 12 (7.0-18.0) mg/dL Creatinine 0.7 L (0.8-1.3) mg/dL Est Cr Clr Drug Dosing 95.62 mL/min Estimated GFR (MDRD) > 60.0 ml/min Glucose 103 (74-106) mg/dL Calcium 8.7 (8.5-10.1) mg/dL Total Bilirubin 0.5 (0.2-1.0) mg/dL AST 18 (15-37) IU/L ALT 27 (14-63) IU/L Alkaline Phosphatase 79 (46-116) U/L Total Protein 6.3 L (6.4-8.2) g/dL Albumin 2.9 L (3.4-5.0) g/dL Globulin 3.4 (2.6-4.0) g/dL Albumin/Globulin Ratio 0.9 (0.9-1.6) Urine Color Urine Appearance Urine pH (5.0-8.0) Ur Specific [place] (1.001-1.035) Urine Protein (NEGATIVE) mg/dL Urine Glucose (UA) (NEGATIVE) mg/dL Urine Ketones (NEGATIVE) mg/dL Urine Occult Blood (NEGATIVE) Urine Nitrite (NEGATIVE) Urine Bilirubin (NEGATIVE) Urine Urobilinogen (<2.0) EU/dL Ur Leukocyte Esterase (NEGATIVE) Urine RBC (0-2/HPF) Urine WBC (0-5/HPF) Ur Epithelial Cells (NONE-FEW) Urine Bacteria (NEGATIVE) Urinalysis Comment SARS-CoV-2 RNA (MALINDA) NEGATIVE (NEGATIVE) Blood Type Antibody Screen 11/18/20 11/18/20 11/18/20 Range/Units 18:58 18:58 22:00 WBC (4.0-11.0) K/uL RBC (4.50-5.90) M/uL Hgb 10.0 L (13.0-17.0) g/dL Hct 29.8 L (38.0-50.0) % MCV (80.0-98.0) fL MCH (27.0-32.0) pg MCHC (31.0-37.0) g/dL RDW Std Deviation (28.0-62.0) fl RDW Coeff of Tiny (11.0-15.0) % Plt Count (150-400) K/uL MPV (7.40-12.00) fL Neut % (Auto) (48.0-80.0) % Lymph % (Auto) (16.0-40.0) % Snyder % (Auto) (0.0-15.0) % Eos % (Auto) (0.0-7.0) % Baso % (Auto) (0.0-1.5) % Neut # (Auto) (1.4-5.7) K/uL Lymph # (Auto) (0.6-2.4) K/uL Snyder # (Auto) (0.0-0.8) K/uL Eos # (Auto) (0.0-0.7) K/uL Baso # (Auto) (0.0-0.1) K/uL Nucleated RBC % /100WBC Nucleated RBCs # K/uL Sodium (136-148) mmol/L Potassium (3.5-5.1) mmol/L Chloride (98-107) mmol/L Carbon Dioxide (21.0-32.0) mmol/L BUN (7.0-18.0) mg/dL Creatinine (0.8-1.3) mg/dL Est Cr Clr Drug Dosing mL/min Estimated GFR (MDRD) ml/min Glucose (74-106) mg/dL Calcium (8.5-10.1) mg/dL Total Bilirubin (0.2-1.0) mg/dL AST (15-37) IU/L ALT (14-63) IU/L Alkaline Phosphatase (46-116) U/L Total Protein (6.4-8.2) g/dL Albumin (3.4-5.0) g/dL Globulin (2.6-4.0) g/dL Albumin/Globulin Ratio (0.9-1.6) Urine Color RED Urine Appearance CLOUDY Urine pH 6.0 (5.0-8.0) Ur Specific [place] 1.015 (1.001-1.035) Urine Protein 100 H (NEGATIVE) mg/dL Urine Glucose (UA) NEGATIVE (NEGATIVE) mg/dL Urine Ketones NEGATIVE (NEGATIVE) mg/dL Urine Occult Blood LARGE H (NEGATIVE) Urine Nitrite NEGATIVE (NEGATIVE) Urine Bilirubin NEGATIVE (NEGATIVE) Urine Urobilinogen 0.2 (<2.0) EU/dL Ur Leukocyte Esterase NEGATIVE (NEGATIVE) Urine RBC TOO NUMEROUS TO CT (0-2/HPF) Urine WBC 0-1 (0-5/HPF) Ur Epithelial Cells RARE (NONE-FEW) Urine Bacteria RARE (NEGATIVE) Urinalysis Comment SARS-CoV-2 RNA (MALINDA) (NEGATIVE) Blood Type A POSITIVE Antibody Screen NEGATIVE Result Diagrams: 11/19/20 09:08 11/19/20 09:08 Sepsis Event Note - Evaluation Sepsis Screening Result: No Definite Risk - Focused Exam Vital Signs: Vital Signs Temp Pulse Resp BP BP Pulse Ox 11/18/20 22:40 36.0 C L 79 17 104/53 L 100 11/18/20 21:42 90 12 112/64 97 11/18/20 20:45 82 15 122/67 97 11/18/20 19:35 82 20 132/68 100 11/18/20 15:08 36.3 C 84 18 150/69 H 96 Consult PN Assessment/Plan Procedures: Procedures ASSAY OF TROPONIN QUANT (02/19/20) CARDIAC REHAB/MONITOR (07/11/17) COMPLETE CBC W/AUTO DIFF WBC (02/19/20) COMPREHEN METABOLIC PANEL (02/19/20) ELECTROCARDIOGRAM TRACING (02/19/20) EMERGENCY DEPT VISIT (02/19/20) HYDRATION IV INFUSION INIT (02/19/20) ROUTINE VENIPUNCTURE (02/19/20) Problem List Initiated/Reviewed/Updated: Yes Plan: 75 yo male with pmh of CAD on plavix with recent history of sandoval placed due to urinary obstruction and hematuria. Agree with holding plavix due to acute bleeding. Would recommend trending hgb and continue monitoring.
[2020-11-19] MEDS ORDERED: Belladonna Alkaloids/Opium 16.2-30 MG Supp ONE (03:13)
--- NOTE | 2020-11-19 07:06 | CONS ---
DATE OF CONSULTATION: 11/18/2020 DATE OF : 1945 PRIMARY CARE PHYSICIAN: None PCP HISTORY OF PRESENT ILLNESS: Chay is 75 years old. He is in the ER with gross hematuria and clot retention. Apparently, that started yesterday. He had a similar episode about a year ago. He was treated for UTI at the time. MEDICAL HISTORY: Significant for having had 5 cardiac stents put in and he is currently on Plavix. He is also on aspirin. He was seen by his primary care provider and was started on Cardura for urinary hesitancy and slow urinary stream. This is the first time I have seen this patient. He had a CT scan done today that showed grade 3 hydronephrosis and hydroureter of the right ending in the bladder in the midst of what looks like a bladder mass. This appears separate from the prostate. Prior to me seeing him, he was irrigated with a 6-hole catheter and a fair amount of blood clots was removed by the PA and the HEEL [facility] [facility] in the ER. The patient's hemoglobin initially was 9.7. His serum creatinine was 0.7. PHYSICAL EXAMINATION: GENERAL: He is alert, he is oriented, somewhat pale. VITAL SIGNS: His pulse is 90, his blood pressure is normal. Over the last 24 hours, he must have lost a fair amount of blood. While here, I put a 6-hole catheter in his bladder and removed very few blood clots and restarted the TUR drip. Reinserted the 3-way catheter and he will be moved to the floor. I had a conversation with Dr. Crawford in [place], who was graciously willing to take him since I will not be available to take care of him tomorrow. LEA / ROXANNE /[phone]
[2020-11-19] MEDS ORDERED: Diltiazem 120 MG Cap.CD PO SCH (09:00)
[2020-11-19] MEDS ORDERED: Pantoprazole 40 MG Tab.CR PO SCH (09:00)
[2020-11-19 09:52] LABS: BLOOD UREA NITROGEN,BUN 11 mg/dL (7.0-18.0); CARBON DIOXIDE,CO2 25.9 mmol/L (21.0-32.0); CHLORIDE,CL 109 mmol/L (98-107); GLUCOSE RANDOM 99 mg/dL (74-106); POTASSIUM,K 3.6 mmol/L (3.5-5.1); SODIUM,NA 142 mmol/L (136-148)
[2020-11-19] MEDS: ceFAZolin 1 GM in Premix Bag 1 BAG IV SCH (10:50)
== END 2020-11-19 10:40 ==
LOC: MW.ED 14:46 → MW.MS 20:47
PROVIDERS: ADMIT Urology; ATTEND Urology
DX: N13.9 Obstructive and reflux uropathy, unspecified (principal); R31.9 Hematuria, unspecified; N13.30 Unspecified hydronephrosis; I25.10 Atherosclerotic heart disease of native coronary artery without angina pectoris; I10 Essential (primary) hypertension; J44.9 Chronic obstructive pulmonary disease, unspecified; E78.00 Pure hypercholesterolemia, unspecified; Z79.02 Long term (current) use of antithrombotics/antiplatelets; Z20.822 Contact with and (suspected) exposure to COVID-19; Z79.899 Other long term (current) drug therapy; Z79.82 Long term (current) use of aspirin; Z98.890 Other specified postprocedural states; Z87.891 Personal history of nicotine dependence; R33.9 Retention of urine, unspecified; Z95.1 Presence of aortocoronary bypass graft
CPT/HCPCS: 36415; 36430; 51700; 51702; 74177; 80048; 80053; 81001; 85014; 85018; 85025; 85027; 86850; 86900; 86901; 86920; 86921; 86922; 96365; 96375; 99284; A9270; G0378; J0690; J2250; J2405; J7120; P9016; Q9967; U0002; 99283

== ENCOUNTER 2020-12-03 09:53 | Emergency (ER) | payer MEDICARE, BC ==
--- NOTE | 2020-12-03 10:38 | EDM.PDOC ---
ED HPI GENERAL MEDICAL PROBLEM - General Chief Complaint: Fever Stated Complaint: FEVER Time Seen by Provider: 12/03/20 10:23 Source of Information: Reports: Patient History Limitations: Reports: No Limitations - History of Present Illness INITIAL COMMENTS - FREE TEXT/NARRATIVE: HISTORY AND PHYSICAL: History of present illness: Patient is a 75-year-old male who presents to the emergency room with concerns of a fever. 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 He was released from the hospital on 11/22/2020 and was informed if he developed any postoperative complications such as fever he should present to the emergency room for reevaluation. He states he has been doing well and has not had any concerns since surgery. This morning he woke up and had a temperature of 101.0. He did take Tylenol this morning, currently afebrile. He states he is asymptomatic and offers no current concerns or complaints. Stating "I am just doing what I was told". Patient denies any chills, headache, change in vision, syncope or near syncope. Denies any chest pain, back pain, shortness of breath or cough. Denies any abdominal pain, nausea, vomiting, diarrhea, constipation or dysuria. Has not noted any blood in urine or stool. Patient has been eating and drinking appropriately. Review of systems: As per history of present illness and below otherwise all systems reviewed and negative. Past medical history: As per history of present illness and as reviewed below otherwise noncontributory. Surgical history: As per history of present illness and as reviewed below otherwise noncontributory. Social history: See social history for further information Family history: As per history of present illness and as reviewed below otherwise noncontributory. Physical exam: General: Well developed and well nourished 75-year-old male. Alert and orientated x 3. Nontoxic in appearance and in no acute distress. Vital signs are stable and have been reviewed by me. Nursing notes were reviewed. HEENT: Atraumatic, normocephalic, pupils equal and reactive bilaterally, negative for conjunctival pallor or scleral icterus, mucous membranes moist, trachea midline. No drooling or trismus noted. No meningeal signs. No hot potato voice noted. Lungs: Clear to auscultation bilaterally. No wheezes, rales, or rhonchi. Chest nontender. Normal work of breathing, no accessory muscles used. Heart: S1S2, regular rate and rhythm without overt murmur, gallops, or rubs. No JVD. No peripheral edema Abdomen: Soft, nondistended, nontender. Normoactive bowel sounds. Negative for masses or costovertebral tenderness. Sandoval catheter in place and draining appropriate amount of yellow urine. Skin: Intact, warm, dry. No lesions or rashes noted. Hematologic: No petechiae or purpra. Mucosa appropriate color and normal nail bed color and refill. Extremities: Atraumatic, moves all extremities per self without difficulty or deficits, negative for cords or calf pain. Neurovascular unremarkable. Neuro: Awake, alert, oriented. Cranial nerves II through XII unremarkable. Cerebellum unremarkable. Motor and sensory unremarkable throughout. Exam nonfoca l. Psychiatric: Mood and affect are appropriate. Normal thought process. Answering questions appropriately. Notes: *This patient was seen and evaluated during the 2019 SARS-CoV-2 novel coronavirus pandemic period. Community viral transmission is ongoing at time of this encounter and the emergency department is operating under pandemic response procedures. Patient does have a urinary tract infection. Urine culture has been added. I spoke with Dr. Crawford, the urologist who has been involved in his case, about today's findings. She states the patient can be placed on antibiotics and follow-up with her on his scheduled follow-up in 1 month. She would like him to follow-up with his primary care as needed. Due to medication interactions I will place him on Omnicef (no interactions with current medications) and give him Rocephin x 1 dose. I have talked with the patient about today's findings, in addition to providing specific details for plan of care. Reassessment at the time of disposition demonstrates that the patient is in no acute distress. The patient is stable for discharge, counseling was provided and we discussed in great detail signs and symptoms that would prompt them to return to the Emergency Department. Medication, follow up and supportive care measures were reviewed and discussed. Voices understanding and is agreeable to plan of care. Denies any further questions or concerns at this time. Diagnostics: CBC, CMP, UA Therapeutics: Rocephin Prescription: Omnicef Impression: UTI Plan: 1. You were evaluated today on an emergent basis. Your urine shows a bladder infection. You received IM Rocephin here. Start your antibiotic script tonight or tomorrow. Increase your oral fluids. Continue your sandoval care at home. 2. You can alternate Tylenol and ibuprofen as needed for pain and fever management. 3. We encourage you to follow up with your primary care provider and/or recommended specialist in the next few days for re-evaluation and further care/management. 4. If your symptoms should worsen, new symptoms develop or any of the signs and symptoms we discussed should arise please return to the emergency room or call 911 (if needed). Definitive disposition and diagnosis as appropriate pending reevaluation and review of above. - Related Data Allergies Allergy/AdvReac Type Severity Reaction Status Date / Time No Known Allergies Allergy Verified 12/03/20 10:37 Home Meds: Home Meds Acetaminophen [Tylenol] 500 mg PO Q4H PRN 02/19/20 [History] Calcium Carbonate [Calcium] 1 tab PO BID 02/19/20 [History] Diltiazem [Cardizem] 120 mg PO DAILY 02/19/20 [History] Docusate Calcium 1 tab PO DAILY PRN 02/19/20 [History] Folic Acid 2 mg PO DAILY 02/19/20 [History] Lutein 20 mg PO DAILY 02/19/20 [History] Methotrexate 8 tab PO WEEKLY 02/19/20 [History] [place]-3/DHA/Epa/Fish Oil [[place] 3 500 Softgel] 1,000 mg PO DAILY 02/19/20 [History] Pantoprazole [ProTONIX] 40 mg PO DAILY 02/19/20 [History] Rosuvastatin [Crestor] 10 mg PO DAILY 02/19/20 [History] Vit A/Vit C/Vit E/Zinc/Copper [Preservision] 2 tab PO DAILY 02/19/20 [History] Vitamin E 1 tab PO DAILY 02/19/20 [History] Doxazosin [Doxazosin Mesylate] 4 mg PO DAILY 11/18/20 [History] InFLIXimab-DYYB [Inflectra] 100 mg IV ASDIRECTED 11/18/20 [History] Methotrexate 11/18/20 [History] Cefdinir [Omnicef] 300 mg PO BID 10 Days #20 cap 12/03/20 [Rx] Iron Polysaccharide Complex [Myferon 150] 150 mg PO 12/03/20 [History] Past Medical History HEENT History: Reports: Hard of Hearing, Impaired Vision Cardiovascular History: Reports: Bypass, CAD, High Cholesterol, Hypertension Respiratory History: Reports: COPD Gastrointestinal History: Reports: None Genitourinary History: Reports: Prostate Disorder, Retention, Urinary, UTI, Recurrent Other Genitourinary History: chronic sandoval Musculoskeletal History: Reports: Arthritis Neurological History: Reports: None Psychiatric History: Reports: None Endocrine/Metabolic History: Reports: None Hematologic History: Reports: None Immunologic History: Reports: None Oncologic (Cancer) History: Reports: Other (See Below) Other Oncologic History: Lip Dermatologic History: Reports: None - Infectious Disease History Infectious Disease History: Reports: Measles, Mumps - Past Surgical History Head Surgeries/Procedures: Reports: None Cardiovascular Surgical History: Reports: Carotid Stents, Coronary Artery Bypass Male Surgical History: Reports: None Musculoskeletal Surgical History: Reports: Knee Replacement Other Musculoskeletal Surgeries/Procedures:: Left Knee replaced Social & Family History - Family History Family Medical History: No Pertinent Family History - Caffeine Use Caffeine Use: Reports: Soda ED ROS GENERAL - Review of Systems Review Of Systems: Comprehensive ROS is negative, except as noted in HPI. ED EXAM, RENAL/ - Physical Exam Exam: See Below (See dictation) Course - Vital Signs Last Recorded V/S: Last Vital Signs Temp 98.2 F 12/03/20 11:55 Pulse 90 12/03/20 11:55 Resp 18 12/03/20 11:55 BP 131/72 12/03/20 11:55 Pulse Ox 98 12/03/20 11:55 - Orders/Labs/Meds Orders: Active Orders 24 hr Category Date Time Status CULTURE URINE [MREF] Stat Lab 12/03/20 11:30 Received Labs: Laboratory Tests 12/03/20 12/03/20 12/03/20 Range/Units 11:05 11:05 11:30 WBC 12.69 H (4.0-11.0) K/uL RBC 3.58 L (4.50-5.90) M/uL Hgb 10.9 L (13.0-17.0) g/dL Hct 33.4 L (38.0-50.0) % MCV 93.3 (80.0-98.0) fL MCH 30.4 (27.0-32.0) pg MCHC 32.6 (31.0-37.0) g/dL RDW Std Deviation 52.9 (28.0-62.0) fl RDW Coeff of Tiny 16 H (11.0-15.0) % Plt Count 248 (150-400) K/uL MPV 10.10 (7.40-12.00) fL Neut % (Auto) 79.4 (48.0-80.0) % Lymph % (Auto) 13.6 L (16.0-40.0) % Kin[place] % (Auto) 6.5 (0.0-15.0) % Eos % (Auto) 0.3 (0.0-7.0) % Baso % (Auto) 0.2 (0.0-1.5) % Neut # (Auto) 10.1 H (1.4-5.7) K/uL Lymph # (Auto) 1.7 (0.6-2.4) K/uL Kinney # (Auto) 0.8 (0.0-0.8) K/uL Eos # (Auto) 0.0 (0.0-0.7) K/uL Baso # (Auto) 0.0 (0.0-0.1) K/uL Nucleated RBC % 0.0 /100WBC Nucleated RBCs # 0 K/uL Sodium 137 (136-148) mmol/L Potassium 4.1 (3.5-5.1) mmol/L Chloride 100 (98-107) mmol/L Carbon Dioxide 26.9 (21.0-32.0) mmol/L BUN 6 L (7.0-18.0) mg/dL Creatinine 0.9 (0.8-1.3) mg/dL Est Cr Clr Drug Dosing 74.37 mL/min Estimated GFR (MDRD) > 60.0 ml/min Glucose 104 (74-106) mg/dL Calcium 9.0 (8.5-10.1) mg/dL Total Bilirubin 0.5 (0.2-1.0) mg/dL AST 21 (15-37) IU/L ALT 18 (14-63) IU/L Alkaline Phosphatase 95 (46-116) U/L Total Protein 7.4 (6.4-8.2) g/dL Albumin 2.7 L (3.4-5.0) g/dL Globulin 4.7 H (2.6-4.0) g/dL Albumin/Globulin Ratio 0.6 L (0.9-1.6) Urine Color YELLOW Urine Appearance CLOUDY Urine pH 8.0 (5.0-8.0) Ur Specific [place] 1.015 (1.001-1.035) Urine Protein 100 H (NEGATIVE) mg/dL Urine Glucose (UA) NEGATIVE (NEGATIVE) mg/dL Urine Ketones NEGATIVE (NEGATIVE) mg/dL Urine Occult Blood LARGE H (NEGATIVE) Urine Nitrite POSITIVE H (NEGATIVE) Urine Bilirubin NEGATIVE (NEGATIVE) Urine Urobilinogen 1.0 (<2.0) EU/dL Ur Leukocyte Esterase LARGE H (NEGATIVE) Urine RBC 35-38 (0-2/HPF) Urine WBC 40-50 (0-5/HPF) Ur Epithelial Cells RARE (NONE-FEW) Urine Bacteria 3+ H (NEGATIVE) Urine Mucus LIGHT (NONE-MOD) Meds: Medications Discontinued Medications Generic Name Dose Route Start Last Admin Trade Name Freq PRN Reason Stop Dose Admin Ceftriaxone Sodium 1 gm 12/03/20 11:58 12/03/20 12:09 Ceftriaxone 1 Gm Vial IM 12/03/20 11:59 1 gm ONETIME ONE Administration Departure - Departure Time of Disposition: 12:06 Disposition: Home, Self-Care 01 Clinical Impression: Urinary tract infection Qualifiers: Urinary tract infection type: catheter-associated UTI Indwelling urinary ca theter type: indwelling urethral catheter Encounter type: initial encounter Qualified Code(s): T83.511A - Infection and inflammatory reaction due to indwelling urethral catheter, initial encounter; N39.0 - Urinary tract infection, site not specified - Discharge Information Prescriptions: Cefdinir [Omnicef] 300 mg PO BID 10 Days #20 cap Instructions: Urinary Tract Infection, Adult, [id number] Referrals: Gucci Paredes MD [Primary Care Provider] - Forms: ED Department Discharge Additional Instructions: The following information is given to patients seen in the emergency department who are being discharged to home. This information is to outline your options for follow-up care. We provide all patients seen in our emergency department with a follow-up referral. The need for follow-up, as well as the timing and circumstances, are variable depending upon the specifics of your emergency department visit. If you don't have a primary care physician on staff, we will provide you with a referral. We always advise you to contact your personal physician following an emergency department visit to inform them of the circumstance of the visit and for follow-up with them and/or the need for any referrals to a consulting specialist. The emergency department will also refer you to a specialist when appropriate. This referral assures that you have the opportunity for follow-up care with a specialist. All of these measure are taken in an effort to provide you with optimal care, which includes your follow-up. Under all circumstances we always encourage you to contact your private ysician who remains a resource for coordinating your care. When calling for follow-up care, please make the office aware that this follow-up is from your recent emergency room visit. If for any reason you are refused follow-up, please contact the [facility] Emergency Department at and asked to speak to the emergency department charge nurse. [facility] [address] [place] [id number] [facility] [address] [place] [id number] Thank you for choosing the [facility] emergency department in [place] for your medical needs today. It was a pleasure caring for you. Today you were seen in the emergency department for fever. 1. You were evaluated today on an emergent basis. Your urine shows a bladder infection. You received IM Rocephin here. Start your antibiotic script tonight or tomorrow. Increase your oral fluids. Continue your sandoval care at home. 2. You can alternate Tylenol and ibuprofen as needed for pain and fever management. 3. We encourage you to follow up with your primary care provider and/or recommended specialist in the next few days for re-evaluation and further care/management. 4. If your symptoms should worsen, new symptoms develop or any of the signs and symptoms we discussed should arise please return to the emergency room or call 911 (if needed). Sepsis Event Note (ED) - Focused Exam Vital Signs: Vital Signs Temp Pulse Resp BP Pulse Ox 12/03/20 11:55 98.2 F 90 18 131/72 98 12/03/20 10:34 98.0 F 97 18 150/78 H 96 - My Orders Last 24 Hours: My Active Orders 12/03/20 11:30 CULTURE URINE [MREF] Stat - Assessment/Plan Last 24 Hours: My Active Orders 12/03/20 11:30 CULTURE URINE [MREF] Stat
[2020-12-03 11:30] LABS: BLOOD UREA NITROGEN,BUN 6 mg/dL (7.0-18.0); CARBON DIOXIDE,CO2 26.9 mmol/L (21.0-32.0); CHLORIDE,CL 100 mmol/L (98-107); GLUCOSE RANDOM 104 mg/dL (74-106); POTASSIUM,K 4.1 mmol/L (3.5-5.1); SODIUM,NA 137 mmol/L (136-148)
[2020-12-03] MEDS ORDERED: cefTRIAXone 1 GM Vial IM ONE (11:58)
== END 2020-12-03 12:43 | disposition home or self-care (01) ==
LOC: MW.ED 09:53
DX: T83.511A Infection and inflammatory reaction due to indwelling urethral catheter, initial encounter (principal); N39.0 Urinary tract infection, site not specified; I25.10 Atherosclerotic heart disease of native coronary artery without angina pectoris; E78.00 Pure hypercholesterolemia, unspecified; I10 Essential (primary) hypertension; J44.9 Chronic obstructive pulmonary disease, unspecified; Z79.899 Other long term (current) drug therapy
CPT/HCPCS: 36415; 80053; 81001; 85025; 87086; 87088; 87186; 96372; 99284; J0696; 99283

== ENCOUNTER 2022-07-25 17:27 | Emergency (ER) | payer MEDICARE, BC ==
[2022-07-25] MEDS ORDERED: cefTRIAXone 1 GM in Sodium Chloride 0.9% 50 ML IV ONE (18:31)
[2022-07-25 19:29] LABS: CARBON DIOXIDE,CO2 26.8 mmol/L (21.0-32.0); POTASSIUM,K 3.3 mmol/L (3.5-5.1)
== END 2022-07-25 20:17 | disposition home or self-care (01) ==
LOC: MW.ED 17:27
DX: N39.0 Urinary tract infection, site not specified (principal); I25.810 Atherosclerosis of coronary artery bypass graft(s) without angina pectoris; I10 Essential (primary) hypertension; E78.00 Pure hypercholesterolemia, unspecified; J44.9 Chronic obstructive pulmonary disease, unspecified; M19.90 Unspecified osteoarthritis, unspecified site; Z79.899 Other long term (current) drug therapy
CPT/HCPCS: 36415; 74176; 80053; 81001; 85025; 87086; 96365; 99284; J0696; J7050; 99283

== ENCOUNTER 2023-03-29 09:57 | Emergency (ER) | payer MEDICARE, BC ==
[2023-03-29] MEDS ORDERED: Sodium Chloride 0.9% 10 ML Syringe FLUSH PRN (09:59)
[2023-03-29] MEDS ORDERED: Sodium Chloride 0.9% 2.5 ML Syringe FLUSH PRN (09:59)
[2023-03-29 10:09] LABS: BASOPHILS ABSOLUTE AUTO 0.03 K/uL (0.00-0.20); BASOPHILS PERCENT AUTO 0.4 % (0.0-1.0); EOSINOPHILS ABSOLUTE AUTO 0.15 K/uL (0.00-0.45); EOSINOPHILS PERCENT AUTO 1.9 % (0.0-6.0); HEMATOCRIT 34.5 % (42.0-52.0); HEMOGLOBIN 11.5 g/dL (14.0-18.0); IMMATURE GRAN ABSOLUTE AUTO 0.04 K/uL (0.00-0.05); IMMATURE GRAN PERCENT AUTO 0.5 % (0.0-0.4); LYMPHOCYTES ABSOLUTE AUTO 1.52 K/uL (1.00-4.80); LYMPHOCYTES PERCENT AUTO 19.6 % (24.0-44.0); MEAN CORPUSCULAR HEMOGLOBIN 31.5 pg (28.0-32.0); MEAN CORPUSCULAR HGB CONC 33.3 g/dL (32.0-36.0); MEAN CORPUSCULAR VOLUME 94.5 fL (83.0-99.0); MEAN PLATELET VOLUME 9.5 fL (9.4-12.4); MONOCYTES ABSOLUTE AUTO 0.51 K/uL (0.00-0.80); MONOCYTES PERCENT AUTO 6.6 % (0.0-8.0); PLATELET COUNT,PLT 161 K/uL (150-400); RED BLOOD CELL COUNT 3.65 M/uL (4.52-5.90); WHITE BLOOD CELL COUNT,WBC 7.75 K/uL (3.9-11.3)
[2023-03-29 10:20] LABS: INR 1.05 (0.86-1.11)
[2023-03-29 10:33] LABS: A/G RATIO 0.7 (0.9-1.6); ALBUMIN 3.1 g/dL (3.4-5.0); BILIRUBIN TOTAL 0.4 mg/dL (0.2-1.0); CALCIUM 9.3 mg/dL (8.5-10.1); CARBON DIOXIDE,CO2 28.6 mmol/L (21.0-32.0); CREATININE 0.9 mg/dL (0.8-1.3); EST CRCL DRUG DOSING (CG) 69.85 mL/min; PROTEIN TOTAL,TP 7.4 g/dL (6.4-8.2)
[2023-03-29 10:52] LABS: CORONAVIRUS COVID-19 NAA NEGATIVE (NEGATIVE); INFLUENZA A NAA NEGATIVE (NEGATIVE); INFLUENZA B NAA NEGATIVE (NEGATIVE)
[2023-03-29] MEDS ORDERED: Iopamidol 755 MG/ML 500 ML Multipack Bottle IVPUSH STA (11:13)
[2023-03-29 12:01] LABS: APPEARANCE,URINE CLEAR; BILIRUBIN,URINE NEGATIVE (NEGATIVE); COLOR,URINE YELLOW; GLUCOSE,URINE NEGATIVE (NEGATIVE); KETONES,URINE NEGATIVE (NEGATIVE); LEUKOCYTE ESTERASE,URINE NEGATIVE (NEGATIVE); NITRITE,URINE NEGATIVE (NEGATIVE); OCCULT BLOOD,URINE NEGATIVE (NEGATIVE); PROTEIN,URINE NEGATIVE (NEGATIVE); UROBILINOGEN,URINE 0.2 EU/dL (<2.0)
[2023-03-29] MEDS ORDERED: Albuterol 8 GM Inhaler INH STA (12:44)
== END 2023-03-29 13:12 | disposition home or self-care (01) ==
LOC: MW.ED 09:57
DX: R06.02 Shortness of breath (principal); R91.8 Other nonspecific abnormal finding of lung field; I25.10 Atherosclerotic heart disease of native coronary artery without angina pectoris; I10 Essential (primary) hypertension; E78.00 Pure hypercholesterolemia, unspecified; Z79.899 Other long term (current) drug therapy; Z20.822 Contact with and (suspected) exposure to COVID-19; Z95.1 Presence of aortocoronary bypass graft
CPT/HCPCS: 0240U; 36415; 71045; 71275; 80053; 81003; 83880; 84484; 85025; 85610; 93005; 99285; A9270; J3490; Q9967; 93010; 99284